=== PATIENT | female | born 1985 | race Caucasian/White ===

== ENCOUNTER 2016-08-09 18:02 | Emergency (ER) | payer MEDICAID ==
[~2016-08-09] VITALS: Ht 162.6 cm; Wt 102.1 kg
[~2016-08-09 18:02] MED LIST: FLEXERIL10 MG PO; OMEPRAZOLE20 MG PO; PROVENTIL HFA6.7 GM INH; ULTRAM50 MG PO; WELLBUTRIN SR150 MG PO
[2016-08-09] MEDS ORDERED: PROZAC20 MG PO (18:31)
[2016-08-09] MEDS ORDERED: BIRTH CONTROL PO (18:33)
== END 2016-08-09 19:44 | disposition short-term general hospital (02) ==
LOC: ER 18:02
DX: M79.89 Other specified soft tissue disorders (principal); R06.00 Dyspnea, unspecified; F17.210 Nicotine dependence, cigarettes, uncomplicated
CPT/HCPCS: J1650